=== PATIENT | female | born 1960 | race Caucasian/White ===

== ENCOUNTER → 2020-03-30 | Day surgery (SDC) | payer OTHER ==
[2020-03-26 12:56] LABS: BASOPHILS # (AUTO) 0.1 (0.0-0.1); BASOPHILS % 0.9 % (0.0-1.0); EOSINOPHILS # (AUTO) 0.2 (0.0-0.4); HEMATOCRIT 40.8 % (34.2-44.1); HEMOGLOBIN 12.9 g/dL (12.0-16.0); LYMPHOCYTES # (AUTO) 2.2 (1.0-3.2); MEAN CORPUSCULAR HEMOGLOBIN 28.6 pg (28-32); MEAN CORPUSCULAR HGB CONC 31.6 g/dL (31-35); MEAN CORPUSCULAR VOLUME 90.5 fL (81-99); MONOCYTES # (AUTO) 0.5 (0.2-0.8); MONOCYTES % 6.4 % (4.4-11.3); NEUTROPHILS # (AUTO) 4.6 (2.1-6.9); NEUTROPHILS % 60.4 % (38.7-80.0); PLATELET COUNT 287 x10e3/uL (140-360); RED BLOOD COUNT 4.51 x10e6/uL (3.6-5.1); RED CELL DISTRIBUTION WIDTH 14.3 % (11.7-14.4)
[~2020-03-30] MED LIST: CALCIUM + D PO; EFFEXOR XR75 MG PO; FISH OIL 1,0001 EAC2 PO; FOLIC ACID1 MG PO; HYOSCYAMINE 0.125 MG TAB ONE; IMITREX25 MG PO; METHOTREXATE PO; METHYLPREDNISOLO4 MG PO; MULTIVITAMINS1 EAC8 PO; OMEPRAZOLE40 MG PO; PANTOPRAZOLE SO40 MG PO; PLAQUENIL200 MG PO; PREDNISONE5 MG PO; PROBIOTIC PO; PROPOFOL IV EMULSION 10 MG/ML 20 ML VIAL ONE; VITAMIN D310 MCG PO; ZETIA10 MG PO
[2020-03-30 13:55] VITALS: BP 142/73
--- NOTE | 2020-03-30 15:02 | Operative Report ---
DATE OF PROCEDURE: 03/30/2020 SURGEON: Bryan Miranda MD PROCEDURE: Colonoscopy with polypectomy note. INDICATION FOR COLONOSCOPY: Surveillance colonoscopy, personal history of colon polyps. MEDICATIONS: The patient was done under MAC, please see anesthesiologist's note. PROCEDURE IN DETAIL: With the patient in left lateral decubitus position, a flexible fiberoptic Olympus colonoscope was inserted into the rectum with ease and advanced all the way to the cecum. The scope was then withdrawn slowly and whatever was visualized the mucosa overlying the cecum, ascending colon, and transverse colon appeared to be within normal limits. Diverticular disease was noted to involve the distal descending and the sigmoid colon. One polyp was hot snared from the proximal sigmoid colon and one polyp was hot biopsied from the rectum. The scope was then retroflexed into the distal rectum and small internal hemorrhoids were noted, none of which was actively bleeding. The scope was then straightened out, it was subsequently withdrawn. The patient tolerated the procedure well. IMPRESSION: 1. Diverticulosis. 2. Sigmoid colon polyp, hot snared. 3. Rectal polyp, hot biopsied. 4. Internal hemorrhoids, none actively bleeding. PLAN: 1. Follow up histology. 2. Initiate high-fiber, low-fat diet. 3. Initiate high-fiber supplement. 4. The patient might benefit from a followup colonoscopy in 3 years. Bryan Miranda MD [facility] [place]/DAVIE /[id number] cc: Michael Miranda MD
== END | disposition home or self-care (01) ==
LOC: OR 11:06
PROVIDERS: ATTEND Internal Medicine Gastroenterology
DX: Z09 Encounter for follow-up examination after completed treatment for conditions other than malignant neoplasm (principal); K63.5 Polyp of colon; K62.1 Rectal polyp; K57.30 Diverticulosis of large intestine without perforation or abscess without bleeding; K64.8 Other hemorrhoids; K29.60 Other gastritis without bleeding; K20.8 Other esophagitis; K21.9 Gastro-esophageal reflux disease without esophagitis; M06.9 Rheumatoid arthritis, unspecified; G43.909 Migraine, unspecified, not intractable, without status migrainosus; I49.9 Cardiac arrhythmia, unspecified; Z01.810 Encounter for preprocedural cardiovascular examination; Z01.812 Encounter for preprocedural laboratory examination; Z11.59 Encounter for screening for other viral diseases; Z68.35 Body mass index [BMI] 35.0-35.9, adult
CPT/HCPCS: 36415; 45384; 45385; 85025; 93005; J2704; U0002; 45378

== ENCOUNTER 2020-07-18 14:53 | Inpatient (IN) | payer OTHER ==
[~2020-07-18] VITALS: Ht 162.6 cm; Wt 87.5 kg
[~2020-07-18 14:53] MED LIST changes: -HYOSCYAMINE 0.125 MG TAB ONE; -PROPOFOL IV EMULSION 10 MG/ML 20 ML VIAL ONE
[2020-07-18] MEDS ORDERED: CHARCOAL/SORBITOL LIQD 25 GM/120 ML TUBE PO STA (15:12)
[2020-07-18] MEDS ORDERED: SODIUM CHLORIDE 0.9% 1000ML 1,000 ML IV STA (15:54)
[2020-07-18 15:55] LABS: BASOPHILS # (AUTO) 0.1 (0.0-0.1); BASOPHILS % 0.7 % (0.0-1.0); EOSINOPHILS # (AUTO) 0.3 (0.0-0.4); EOSINOPHILS % 3.2 % (0.0-6.0); HEMATOCRIT 41.8 % (34.2-44.1); HEMOGLOBIN 13.6 g/dL (12.0-16.0); LYMPHOCYTES # (AUTO) 2.3 (1.0-3.2); LYMPHOCYTES % 24.4 % (18.0-39.1); MEAN CORPUSCULAR HEMOGLOBIN 29.1 pg (28-32); MEAN CORPUSCULAR HGB CONC 32.5 g/dL (31-35); MEAN CORPUSCULAR VOLUME 89.3 fL (81-99); MONOCYTES # (AUTO) 0.7 (0.2-0.8); MONOCYTES % 7.4 % (4.4-11.3); NEUTROPHILS % 63.8 % (38.7-80.0); PLATELET COUNT 306 x10e3/uL (140-360); RED BLOOD COUNT 4.68 x10e6/uL (3.6-5.1); RED CELL DISTRIBUTION WIDTH 15.9 % (11.7-14.4)
[2020-07-18] MEDS ORDERED: SODIUM CHLORIDE 0.9% 1000ML 1,000 ML ONE (16:02)
[2020-07-18] MEDS ORDERED: ATROPINE SULFATE 0.1 MG/ML 10ML SYR ONE (16:02)
[2020-07-18 16:04] LABS: INR 0.97; PROTHROMBIN TIME 13.4 seconds (11.9-14.5)
[2020-07-18 16:05] LABS: PARTIAL THROMBOPLASTIN TIME 24.3 seconds (23.8-35.5)
[2020-07-18 16:12] LABS: ALANINE AMINOTRANSFERASE 35 IU/L (0-55); ALBUMIN 3.7 g/dL (3.5-5.0); ALBUMIN/GLOBULIN RATIO 1.3 (0.8-2.0); ALKALINE PHOSPHATASE 84 IU/L (40-150); ANION GAP 14.8 mmol/L (8-16); BLOOD UREA NITROGEN 14 mg/dL (7-26); BUN/CREATININE RATIO 16 (6-25); CALCIUM 9.2 mg/dL (8.4-10.2); CARBON DIOXIDE 24 mmol/L (22-29); CHLORIDE 107 mmol/L (98-107); CREATINE KINASE 32 IU/L (29-168); EST GLOMERULAR FILTRATION RATE > 60 ML/MIN (60-); GLUCOSE 110 mg/dL (74-118); POTASSIUM 3.8 mmol/L (3.5-5.1); SODIUM 142 mmol/L (136-145)
[2020-07-18 16:49] LABS: CREATINE KINASE MB < 1.00 ng/mL (0-4.3)
[2020-07-18] MEDS ORDERED: ZOLPIDEM TARTRATE 5 MG TAB PO PRN (17:15)
[2020-07-18] MEDS ORDERED: ONDANSETRON HCL INJ 2MG/ML 2ML 2 MG/ML VIAL IV PRN (18:15)
[2020-07-18] MEDS ORDERED: SODIUM CHLORIDE 0.9% 50ML 50 ML ONE (18:53)
[2020-07-18] MEDS ORDERED: IOPAMIDOL 370 MG/ML 200 ML INFUS..BTL INJ ONE (18:54)
[2020-07-18] MEDS: EZETIMIBE 10 MG TAB PO SCH ×2 (21:00→22:38)
[2020-07-19] VITALS (11 sets, daily range): BP systolic 106–137; BP diastolic 53–83
[2020-07-19 02:16] LABS: CREATINE KINASE 42 IU/L (29-168)
[2020-07-19 06:22] LABS: BASOPHILS # (AUTO) 0.1 (0.0-0.1); BASOPHILS % 0.5 % (0.0-1.0); EOSINOPHILS # (AUTO) 0.3 (0.0-0.4); EOSINOPHILS % 3.1 % (0.0-6.0); HEMATOCRIT 38.6 % (34.2-44.1); HEMOGLOBIN 12.4 g/dL (12.0-16.0); LYMPHOCYTES # (AUTO) 2.6 (1.0-3.2); LYMPHOCYTES % 25.3 % (18.0-39.1); MEAN CORPUSCULAR HEMOGLOBIN 29.3 pg (28-32); MEAN CORPUSCULAR HGB CONC 32.1 g/dL (31-35); MEAN CORPUSCULAR VOLUME 91.3 fL (81-99); MONOCYTES # (AUTO) 0.8 (0.2-0.8); MONOCYTES % 7.6 % (4.4-11.3); NEUTROPHILS # (AUTO) 6.4 (2.1-6.9); NEUTROPHILS % 63.1 % (38.7-80.0); PLATELET COUNT 266 x10e3/uL (140-360); RED BLOOD COUNT 4.23 x10e6/uL (3.6-5.1); RED CELL DISTRIBUTION WIDTH 15.8 % (11.7-14.4)
[2020-07-19 06:52] LABS: CHOL/HDL RATIO 3.5 (3.0-3.6); CREATINE KINASE 39 IU/L (29-168)
[2020-07-19 07:13] LABS: CREATINE KINASE MB < 1.00 ng/mL (0-4.3)
[2020-07-19 07:14] LABS: ALANINE AMINOTRANSFERASE 33 IU/L (0-55); ALBUMIN 3.5 g/dL (3.5-5.0); ALBUMIN/GLOBULIN RATIO 1.3 (0.8-2.0); ALKALINE PHOSPHATASE 77 IU/L (40-150); ANION GAP 13.6 mmol/L (8-16); BLOOD UREA NITROGEN 8 mg/dL (7-26); BUN/CREATININE RATIO 10 (6-25); CALCIUM 8.8 mg/dL (8.4-10.2); CARBON DIOXIDE 23 mmol/L (22-29); CHLORIDE 108 mmol/L (98-107); CREATININE, SERUM 0.78 mg/dL (0.57-1.11); EST GLOMERULAR FILTRATION RATE > 60 ML/MIN (60-); GLUCOSE 99 mg/dL (74-118); POTASSIUM 3.6 mmol/L (3.5-5.1); SODIUM 141 mmol/L (136-145)
[2020-07-19] MEDS: FOLIC ACID 1 MG TAB PO SCH (08:12)
[2020-07-19] MEDS: PANTOPRAZOLE SOD 40 MG TABEC PO SCH ×2 (08:13→17:43)
[2020-07-19] MEDS: PREDNISONE 5 MG TAB PO SCH (08:13)
[2020-07-19] MEDS ORDERED: ARTIFICIAL TEARS (OPTH) 15 ML BTL OU PRN (11:00)
[2020-07-19] MEDS ORDERED: SUMATRIPTAN SUCCINATE 25 MG TAB PO PRN ×2 (11:00→11:45)
[2020-07-19] MEDS ORDERED: METOPROLOL SUCC25 MG (11:33)
[2020-07-19] MEDS ORDERED: SUMATRIPTAN SUC25 MG PO (11:33)
[2020-07-19] MEDS ORDERED: IBUPROFEN200 MG PO (11:33)
[2020-07-19] MEDS ORDERED: VALACYCLOVIR500 MG PO (11:33)
[2020-07-19] MEDS ORDERED: IBUPROFEN 100 MG/5 ML SUSP PO PRN (11:45)
[2020-07-19] MEDS: VENLAFAXINE HCL 75 MG CAPCR PO SCH ×2 (12:15→17:43)
[2020-07-19 15:39] LABS: CREATINE KINASE 45 IU/L (29-168)
[2020-07-19] MEDS ORDERED: VALACYCLOVIR HCL 500 MG TAB PO SCH (21:00)
[2020-07-19] MEDS: EZETIMIBE 10 MG TAB PO SCH (21:06)
[2020-07-20] VITALS: BP 136/78
[2020-07-20 04:00] VITALS: BP 126/66
[2020-07-20 07:35] VITALS: BP 129/66
[2020-07-20 07:36] VITALS: BP 129/66
[2020-07-20] MEDS: PREDNISONE 5 MG TAB PO SCH (08:03)
[2020-07-20] MEDS: VENLAFAXINE HCL 75 MG CAPCR PO SCH (08:03)
[2020-07-20] MEDS: FOLIC ACID 1 MG TAB PO SCH (08:03)
[2020-07-20] MEDS: PANTOPRAZOLE SOD 40 MG TABEC PO SCH (08:03)
[2020-07-20] MEDS ORDERED: MULTIVITAMINS/MINERALS TAB PO SCH (09:00)
[2020-07-20] MEDS ORDERED: LACTOBACILLUS ACIDOPHILUS CAPSULE PO SCH (09:00)
[2020-07-20] MEDS ORDERED: CHOLECALCIFEROL 1,000 UNIT TAB PO SCH (09:00)
[2020-07-25] MEDS ORDERED: METHOTREXATE SOD 2.5 MG TAB PO SCH (09:00)
== END 2020-07-20 14:00 | disposition home or self-care (01) | DRG 918 ==
LOC: ER 15:28 → ERHOLD 18:02 → IMCU 23:52
DX: T44.7X1A Poisoning by beta-adrenoreceptor antagonists, accidental (unintentional), initial encounter (principal); M06.9 Rheumatoid arthritis, unspecified; I10 Essential (primary) hypertension; F41.9 Anxiety disorder, unspecified; K21.9 Gastro-esophageal reflux disease without esophagitis; R00.1 Bradycardia, unspecified; K29.70 Gastritis, unspecified, without bleeding; E78.5 Hyperlipidemia, unspecified; G43.909 Migraine, unspecified, not intractable, without status migrainosus; E11.9 Type 2 diabetes mellitus without complications; Z11.59 Encounter for screening for other viral diseases
CPT/HCPCS: 36415; 71045; 71260; 80053; 80061; 82550; 82553; 82948; 84484; 85025; 85610; 85730; 93005; 99284; J7030; J7512; Q9967; U0002

== ENCOUNTER → 2023-07-10 | Outpatient (REF) | payer BC ==
[~2023-07-10] MED LIST changes: +CRESTOR10 MG PO; +IBUPROFEN200 MG PO; +METOPROLOL SUCC25 MG; +NURTEC ODT75 MG PO; +SUMATRIPTAN SUC25 MG PO; +VALACYCLOVIR500 MG PO
== END ==
LOC: NM 11:17
PROVIDERS: ATTEND Internal Medicine Gastroenterology
DX: K76.0 Fatty (change of) liver, not elsewhere classified (principal); R74.8 Abnormal levels of other serum enzymes; Z86.010 Personal history of colon polyps
CPT/HCPCS: 78226; A9537

== ENCOUNTER 2025-05-08 21:31 | Emergency (ER) | payer BC, MEDICARE ==
[~2025-05-08] VITALS: Ht 162.6 cm; Wt 87.5 kg
[~2025-05-08 21:31] MED LIST changes: +CALCIUM600 MG PO; +FIBER GUMMIES-1 EACH PO
[2025-05-08] MEDS ORDERED: KETOROLAC TROMETHAMINE 30 MG/ML VIAL ONE (21:47)
[2025-05-08] MEDS: KETOROLAC TROMETHAMINE 30 MG/ML VIAL IM STA (21:52)
[2025-05-08] MEDS ORDERED: NAPROXEN375 MG PO (21:55)
[2025-05-08 22:28] VITALS: PULSE 71; RESP 16; TEMP 98.6; O2SAT 98
== END 2025-05-08 22:28 | disposition home or self-care (01) ==
LOC: ER 21:37
DX: M54.2 Cervicalgia (principal); M06.9 Rheumatoid arthritis, unspecified; K21.9 Gastro-esophageal reflux disease without esophagitis; F32.A Depression, unspecified
CPT/HCPCS: 93005; 99283; J1885